=== PATIENT | female | born 1945 | race Two or more races ===

== ENCOUNTER 2023-12-12 10:47 | Outpatient (CLI) | payer OTHER | END 2023-12-12 11:06 | disposition home or self-care (01) | LOC: MAMO-SONO 10:47 | PROVIDERS: ATTEND Internal Medicine | DX: N64.4 Mastodynia (principal); R92.8 Other abnormal and inconclusive findings on diagnostic imaging of breast; Z12.31 Encounter for screening mammogram for malignant neoplasm of breast ==

== ENCOUNTER 2024-02-26 13:58 | Outpatient (CLI) | payer OTHER | END 2024-02-26 14:03 | disposition home or self-care (01) | LOC: TOM 13:58 | PROVIDERS: ATTEND Internal Medicine Pulmonary Disease | DX: J45.40 Moderate persistent asthma, uncomplicated (principal); R91.8 Other nonspecific abnormal finding of lung field ==

== ENCOUNTER 2024-03-11 11:40 | Outpatient (CLI) | payer OTHER ==
[2024-03-11 12:51] LABS: PH,URINE 5.5 (5.0-8.0); URINE APPEARANCE Clear; URINE BILIRRUBIN Negative (NEGATIVE); URINE BLOOD Negative; URINE COLOR Yellow; URINE GLUCOSE Negative (NEGATIVE); URINE LEUKOCYTE Moderate; URINE NITRATE Negative; URINE PROTEIN Negative (NEGATIVE); URINE UROBILINOGEN 0.2 E.U./dl
[2024-03-11 12:55] LABS: URINE BACTERIA 256.9 uL (0.0-1933); URINE EPITHELIAL CELLS 7.8 uL (0.0-38.8); URINE RBC 11.6 uL (0.0-20.8); URINE WBC 249.5 uL (0.0-23.2)
[2024-03-11 13:19] LABS: ob NEGATIVE (NEGATIVE)
[2024-03-11 13:19] LABS: HEMATOCRIT 27.8 % (36.0-45.00); MEAN CORPUSCULAR HGB CONC 31.3 g/dl (32.0-36.0); PLATELET COUNT 333 K/uL (150-450); RED BLOOD COUNT 4.17 M/uL (4.00-6.00); RED CELL DISTRIBUTION WIDTH 22.3 % (11.5-14.5)
[2024-03-11 13:24] LABS: MEAN CELL VOLUME 66.7 fL (80.00-100.00); MEAN CORPUSCULAR HEMOGLOBIN 20.8 pg (27.00-32.0)
[2024-03-11 13:25] LABS: HEMOGLOBIN 8.7 g/dL (12.0-15.00)
[2024-03-11 13:40] LABS: ALBUMIN 3.6 gm/dL (3.4-5.0); BILIRUBIN TOTAL 0.33 mg/dL (0.3-1.2); CALCIUM 8.9 mg/dL (8.5-10.1); CHOL HDL RATIO 3.9 (0-5.0); CREATININE SERUM 0.63 mg/dL (0.55-1.02); GFR 91.16; GLOBULINA 3.8 G/DL (2.4-3.5); POTASSIUM 4.36 mEq/L (3.5-5.1); T4 FREE 0.75 NG/ML (0.76-1.46); TOTAL PROTEIN 7.4 gm/dL (6.4-8.2)
[2024-03-11 13:56] LABS: TSH 6.04 uIU/mL (0.358-3.74)
== END 2024-03-11 11:45 | disposition home or self-care (01) ==
LOC: LAB 11:40
PROVIDERS: ATTEND Internal Medicine
DX: D64.9 Anemia, unspecified (principal); E11.9 Type 2 diabetes mellitus without complications; E78.00 Pure hypercholesterolemia, unspecified; N39.0 Urinary tract infection, site not specified; E03.8 Other specified hypothyroidism; Z12.11 Encounter for screening for malignant neoplasm of colon

== ENCOUNTER 2024-06-03 14:55 | Outpatient (CLI) | payer OTHER | END 2024-06-03 15:05 | disposition home or self-care (01) | LOC: TOM 14:55 | PROVIDERS: ATTEND Surgery | DX: K43.0 Incisional hernia with obstruction, without gangrene (principal) ==

== ENCOUNTER 2024-08-10 12:04 | Outpatient (CLI) | payer OTHER | END 2024-08-10 12:11 | disposition home or self-care (01) | LOC: RAD 12:04 | PROVIDERS: ATTEND Obstetrics & Gynecology Obstetrics | DX: M99.01 Segmental and somatic dysfunction of cervical region (principal); M99.02 Segmental and somatic dysfunction of thoracic region; M99.03 Segmental and somatic dysfunction of lumbar region; M99.04 Segmental and somatic dysfunction of sacral region; M99.05 Segmental and somatic dysfunction of pelvic region ==

== ENCOUNTER 2024-11-05 12:02 | Outpatient (CLI) | payer OTHER | END 2024-11-05 12:06 | disposition home or self-care (01) | LOC: RAD 12:02 | DX: M20.22 Hallux rigidus, left foot (principal) ==

== ENCOUNTER 2024-11-26 12:21 | Outpatient (CLI) | payer OTHER | END 2024-11-26 12:23 | disposition home or self-care (01) | LOC: SONOGRAMA 12:21 | PROVIDERS: ATTEND Internal Medicine Hematology & Oncology | DX: E04.2 Nontoxic multinodular goiter (principal); D50.8 Other iron deficiency anemias; D51.3 Other dietary vitamin B12 deficiency anemia; E03.8 Other specified hypothyroidism; E55.9 Vitamin D deficiency, unspecified ==

== ENCOUNTER → 2024-12-10 11:35 | Outpatient (CLI) | payer OTHER ==
[2024-12-10 12:26] LABS: HEMOGLOBIN 14.9 g/dL (12.0-15.00); MEAN CELL VOLUME 95.1 fL (80.00-100.00); MEAN CORPUSCULAR HEMOGLOBIN 32.8 pg (27.00-32.0); MEAN CORPUSCULAR HGB CONC 34.5 g/dl (32.0-36.0); PLATELET COUNT 234 K/uL (150-450); RED BLOOD COUNT 4.53 M/uL (4.00-6.00); RED CELL DISTRIBUTION WIDTH 13.7 % (11.5-14.5)
[2024-12-10 14:02] LABS: % SATURACION 17.4 % (15-50); ALBUMIN 3.8 gm/dL (3.4-5.0); BILIRUBIN TOTAL 0.37 mg/dL (0.3-1.2); CALCIUM 8.9 mg/dL (8.5-10.1); CREATININE SERUM 0.72 mg/dL (0.55-1.02); FERRITIN 23.7 NG/ML (8-252); GFR 77.94; GLOBULINA 3.7 G/DL (2.4-3.5); POTASSIUM 4.03 mEq/L (3.5-5.1); T4 FREE 0.84 NG/ML (0.76-1.46); TOTAL PROTEIN 7.5 gm/dL (6.4-8.2); TSH 4.28 uIU/mL (0.358-3.74)
[2024-12-10 14:07] LABS: FOLIC ACID > 20.00 ng/ml (4.78-20)
== END | disposition home or self-care (01) ==
LOC: LAB 11:35
PROVIDERS: ATTEND Internal Medicine Hematology & Oncology
DX: D50.8 Other iron deficiency anemias (principal); D51.3 Other dietary vitamin B12 deficiency anemia; E03.8 Other specified hypothyroidism; E55.9 Vitamin D deficiency, unspecified; I10 Essential (primary) hypertension; R74.02 Elevation of levels of lactic acid dehydrogenase [LDH]; K76.89 Other specified diseases of liver; D51.0 Vitamin B12 deficiency anemia due to intrinsic factor deficiency; E06.3 Autoimmune thyroiditis; E63.8 Other specified nutritional deficiencies; E55.0 Rickets, active

== ENCOUNTER → 2025-01-07 12:40 | Outpatient (CLI) | payer OTHER ==
[2025-01-07 14:17] LABS: CREATININE SERUM 0.65 mg/dL (0.55-1.02)
== END | disposition home or self-care (01) ==
LOC: LAB 12:40
PROVIDERS: ATTEND Internal Medicine Hematology & Oncology
DX: I10 Essential (primary) hypertension (principal)

== ENCOUNTER 2025-01-13 08:11 | Outpatient (CLI) | payer OTHER | END 2025-01-13 08:13 | disposition home or self-care (01) | LOC: TOM 08:11 | PROVIDERS: ATTEND Internal Medicine Hematology & Oncology | DX: D50.8 Other iron deficiency anemias (principal); D51.3 Other dietary vitamin B12 deficiency anemia; E03.8 Other specified hypothyroidism; E55.9 Vitamin D deficiency, unspecified; R10.30 Lower abdominal pain, unspecified; R10.10 Upper abdominal pain, unspecified | CPT/HCPCS: 74178; Q9965 ==

== ENCOUNTER 2025-06-06 12:38 | Outpatient (CLI) | payer OTHER ==
[2025-06-06 13:57] LABS: BASO % 0.7 % (0.1-1.2); EOS # 0.13 (0.04-0.54); EOS % 1.7 % (0.7-7.0); LYMPH # 1.72 (1.18-3.74); LYMPH % 22.8 % (19.3-53.1); MEAN PLATELET VOLUME 10.00 fl (9.4-12.4); MONO # 0.62 (0.24-0.82); MONO % 8.2 % (4.7-12.5); NEUT # 4.99 (1.56-6.13); NEUT % 66.3 % (34.0-71.1); RED CELL DISTRIBUTION WIDTH 13.2 % (11.6-14.4)
[2025-06-06 14:50] LABS: ALT/SGPT 22.0 U/L (12-78); AST/SGOT 20.0 U/L (15-37); BILIRUBIN TOTAL 0.45 mg/dL (0.3-1.2); BUN CREA RATIO 16.0 (7.0-25.0); CREATININE SERUM 0.62 mg/dL (0.55-1.02); FE 35.0 ug/dl (50-170); GFR 92.38; GLOBULINA 3.4 G/DL (2.4-3.5); GLUCOSE FASTING 83.0 mg/dL (65-100); LDH 209.0 U/L (84-246); OSMOLALITY SERUM 283.0 MOSM/KG (275-295); T4 FREE 0.84 NG/ML (0.76-1.46); TSH 2.24 uIU/mL (0.358-3.74)
[2025-06-06 16:11] LABS: FOLIC ACID 12.28 ng/ml (4.78-20); VITAMIN D3 25 HYDROXY 24.03 ng/ml (30-120)
== END 2025-06-06 12:40 | disposition home or self-care (01) ==
LOC: LAB 12:38
PROVIDERS: ATTEND Internal Medicine Hematology & Oncology
DX: D50.9 Iron deficiency anemia, unspecified (principal); I10 Essential (primary) hypertension; D51.3 Other dietary vitamin B12 deficiency anemia; E03.8 Other specified hypothyroidism; E55.9 Vitamin D deficiency, unspecified; R10.30 Lower abdominal pain, unspecified; R10.10 Upper abdominal pain, unspecified; R74.02 Elevation of levels of lactic acid dehydrogenase [LDH]; K76.89 Other specified diseases of liver

== ENCOUNTER 2025-06-30 13:26 | Outpatient (CLI) | payer OTHER | END 2025-06-30 13:32 | disposition home or self-care (01) | LOC: TOM 13:26 | PROVIDERS: ATTEND Otolaryngology | DX: J31.0 Chronic rhinitis (principal) ==